=== PATIENT | male | born 1985 | race Caucasian/White ===

== ENCOUNTER 2017-11-14 18:51 | Emergency (ER) | payer BC ==
[2017-11-14 21:46] LABS: #Eosinphils 0.1 thou/uL (0.0-0.7); #Lymphocytes 0.9 thou/uL (1.20-3.40); #Monocytes 0.2 thou/uL (0.11-0.59); #Neutrophils 9.5 thou/uL (1.40-6.50); %Basophils 0.3 % (0.0-1.0); %Eosinophils 0.7 % (0.0-10.0); %Lymphocytes 8.2 % (21.0-51.0); %Monocytes 2.2 % (0.0-10.0); %Neutrophils 88.7 % (42.0-75.0); Hemoglobin 15.7 g/dL (14.0-18.0); Mean Corpuscular HGB CONC 33.8 g/dL (32.0-36.0); Mean Corpuscular Hemoglobin 30.5 pg (27.0-31.0); Mean Corpuscular Volume 90.2 fl (80.0-94.0); Mean Platelet Volume 9.3 fL (7.4-10.4); Platelet Count 205 thou/uL (130-400); RBC Distribution Width 11.1 % (11.5-14.5); Red Blood Cell (RBC) Count 5.17 mill/uL (4.70-6.10); White Blood Cell (WBC) Count 10.7 thou/uL (4.8-10.8)
[2017-11-14 22:07] LABS: ALT (SGPT) 15 U/L (8-55); AST (SGOT) 19 U/L (5-34); Albumin 4.7 g/dL (3.5-5.0); Alkaline Phosphatase 52 U/L (40-150); Anion Gap 13 mmol/L (10-20); BUN (Urea Nitrogen) 9 mg/dL (8.9-20.6); Bilirubin, Total 0.5 mg/dL (0.2-1.2); Calc. Creatinine Clearance 0 mL/min (70-130); Calcium 9.5 mg/dL (7.8-10.44); Carbon Dioxide 23 mmol/L (22-29); Chloride 107 mmol/L (98-107); Estimated GFR-MDRD Greater than 90; Globulin 2.6 g/dL (2.4-3.5); Glucose 101 mg/dL (70-105); Potassium 4.2 mmol/L (3.5-5.1); Protein, Total 7.3 g/dL (6.0-8.3); Sodium 139 mmol/L (136-145)
[2017-11-14] MEDS ORDERED: Acetaminophen 500 MG TAB ONE (22:08)
== END 2017-11-14 22:45 | disposition home or self-care (01) ==
LOC: ERS 18:51
DX: R42 Dizziness and giddiness (principal); R51 Headache; F41.9 Anxiety disorder, unspecified
CPT/HCPCS: 36415; 36416; 80053; 85025; 93005

== ENCOUNTER 2020-07-16 13:39 | Outpatient (CLI) | payer BC ==
--- NOTE | 2020-07-16 14:10 | ULT ---
ULTRASOUND NECK SOFT TISSUE: HISTORY: Palpable abnormality in the left lateral neck inferior to the ear. Enlarged lymph node. FINDINGS: Sonographic evaluation of the region of palpable concern in the lateral aspect of the left side of th e neck and just inferior to the ear demonstrates a well-circumscribed hypoechoic nonshadowing nodule with echogenic hilum and demonstrating flow to the hilum likely representing a lymph node. This eduardo ures 8 x 4 x 7 mm. Further evaluation with contrast-enhanced CT scan of the neck is recommended. POS: OFF
== END 2020-07-16 13:40 | disposition home or self-care (01) ==
LOC: BICULT 13:39
PROVIDERS: ATTEND Nurse Practitioner Family
DX: R59.1 Generalized enlarged lymph nodes (principal)
CPT/HCPCS: 76536

== ENCOUNTER 2021-07-28 21:59 | Emergency (ER) | payer BC ==
[2021-07-28] MEDS ORDERED: Midazolam HCl 2 mg/2 ml Vial ONE (22:41)
[2021-07-28] MEDS ORDERED: Fentanyl 100 MCG/2 ML VIAL ONE (22:41)
[2021-07-28] MEDS ORDERED: Lidocaine 1% PF 5 ML VIAL ONE (22:52)
[2021-07-28] MEDS ORDERED: PROPOFOL 200 MG/20 ML VIAL ONE (22:52)
[2021-07-28] MEDS ORDERED: Succinylcholine 200 MG/10 ml SYRINGE FS ONE (22:52)
[2021-07-29] MEDS ORDERED: Nitroglycerin 0.4 MG TAB 1 EACH ONE (01:01)
== END 2021-07-29 01:31 | disposition admitted as inpatient to this hospital (09) ==
LOC: ERS 21:59
PROC: 0D738ZZ Dilation of Lower Esophagus, Via Natural or Artificial Opening Endoscopic (ICD-10-PCS; principal; 2021-07-29)
DX: K22.2 Esophageal obstruction (principal); S27.813A Laceration of esophagus (thoracic part), initial encounter; T18.198A Other foreign object in esophagus causing other injury, initial encounter; Z88.0 Allergy status to penicillin
CPT/HCPCS: 99284; J2250; J2704; J3010

== ENCOUNTER 2024-08-05 07:59 | Day surgery (SDC) | payer BC ==
[2024-08-05] MEDS ORDERED: Glucagon 1 MG/ML KIT ONE (09:29)
[2024-08-05] MEDS ORDERED: PROPOFOL 20 ML ONE (12:19)
[2024-08-05] MEDS ORDERED: SUCCINYLCHOLINE/SOD CL,ISO/PF 200 MG/10 ML SYRINGE FS ONE (12:19)
[2024-08-05] MEDS ORDERED: Dexamethasone 20 MG/5 ML VIAL ONE (12:41)
[2024-08-05] MEDS ORDERED: Ondansetron PF 4 MG/2 ML Vial ONE (12:41)
== END 2024-08-05 14:25 | disposition home or self-care (01) ==
LOC: ERS 07:59 → SDC 10:17 → ERS 10:33 → SDC 14:25 → EDSTATUS 16:45
PROVIDERS: ATTEND Internal Medicine Gastroenterology
PROC: 0D758ZZ Dilation of Esophagus, Via Natural or Artificial Opening Endoscopic (ICD-10-PCS; principal; 2024-08-05)
DX: T18.128A Food in esophagus causing other injury, initial encounter (principal); K22.2 Esophageal obstruction; Z88.0 Allergy status to penicillin; Z79.899 Other long term (current) drug therapy; Z98.890 Other specified postprocedural states; W44.F3XA Food entering into or through a natural orifice, initial encounter
CPT/HCPCS: C1726; J1100; J1611; J2405; J2704